=== PATIENT | female | born 1935 | race Caucasian/White ===

== ENCOUNTER 2024-01-21 18:50 | Outpatient (CLI) | payer MEDICARE, MEDICAID | END 2024-01-21 23:59 | disposition critical access hospital (66) | LOC: EMS 18:50 | DX: R07.89 Other chest pain (principal); I48.91 Unspecified atrial fibrillation; M54.2 Cervicalgia; Z79.01 Long term (current) use of anticoagulants | CPT/HCPCS: A0425; A0429 ==

== ENCOUNTER 2024-01-21 19:14 | Emergency (ER) | payer MEDICARE, MEDICAID ==
--- NOTE | 2024-01-21 19:45 | ED Physician Documentation ---
PD HPI CHEST PAIN - Stated complaint Stated Complaint: CHEST PX - Chief complaint Chief Complaint: Cardiac - History obtained from History obtained from: Patient - Additional information Additional information: About 630 this evening she developed substernal chest pain and felt short of breath and dizzy. She is a vague story about her cardiac history. Sound like she may have had a valve replacement and or atrial fibrillation. She is on Eliquis, Metoprolol, lisinopril, and multiple other medications. On route she did have a dynamic EKG change but at this point on initial evaluation her pain is gone. That said while we were talking she goes into ventricular tachycardia and I queried as to CODE STATUS, and she said she did not know. PD PAST MEDICAL HISTORY - Past Medical History Past Medical History: Yes Cardiovascular: High cholesterol Endocrine/Autoimmune: Type 1 diabetes, HyPOthyroidism - Present Medications Home Medications: Ambulatory Orders Medication Instructions Recorded Confirmed Apixaban [Eliquis] 1 tab PO BID 01/21/24 01/22/24 Atorvastatin Calcium [Lipitor] 1 tab PO DAILY 01/21/24 01/22/24 Bisacodyl Supp [Dulcolax Supp] 1 supp RC DAILY PRN 01/21/24 01/21/24 Bumetanide [Bumex] 1 tab PO BID 01/21/24 01/22/24 Calcium Carbonate [Antacid] 1 tab PO DAILY PRN 01/21/24 01/21/24 Copper Gluconate 4 mg PO DAILY 01/21/24 01/21/24 Cyanocobalamin [Vitamin B-12] 2,000 mcg PO DAILY 01/21/24 01/21/24 D-Mannose [Azo D-Mannose] 1 cap PO DAILY 01/21/24 01/21/24 Dulaglutide [Trulicity] 4.5 units SUBQ OAW 01/21/24 01/22/24 Ergocalciferol (Vitamin D2) 2,000 units PO DAILY 01/22/24 01/22/24 [Drisdol] Famotidine [Zantac-360 1 tab PO DAILY 01/22/24 01/22/24 (Famotidine)] Insulin Aspart [Insulin Aspart 4 units SUBQ TID 01/22/24 01/22/24 Flexpen] Insulin Glargine [Lantus Solostar] 6 units SUBQ DAILY PM 01/22/24 01/22/24 Levothyroxine [Synthroid] 1 tab PO DAILY 01/22/24 01/22/24 Lisinopril [Zestril] 1 tab PO DAILY 01/22/24 01/22/24 Loratadine [All Day Allergy Relief] 1 tab PO DAILY 01/22/24 01/22/24 Melatonin 1 tab PO DAILY PM 01/22/24 01/22/24 Metoprolol Succinate [Kapspargo 1 cap PO BID 01/22/24 01/22/24 Sprinkle] Multivitamin 1 tab PO DAILY 01/22/24 01/22/24 Omeprazole 1 cap PO BID 01/22/24 01/22/24 Spironolactone [Aldactone] 1 tab PO DAILY 01/22/24 01/22/24 glucosamine HCL [Glucosamine HCl] 2,000 mg PO DAILY 01/22/24 01/22/24 oxyBUTYnin chloride [Oxybutynin 1 tab PO DAILY 01/22/24 01/22/24 Chloride] predniSONE [Prednisone] 1 tab PO DAILY 01/22/24 01/22/24 - Allergies Allergies/Adverse Reactions: Allergies Allergy/AdvReac Type Severity Reaction Status Date / Time No Known Drug Allergies Allergy Verified 01/21/24 19:27 - Social History Does the pt smoke?: No Smoking Status: Never smoker PD ED PE NORMAL - Vitals Vital signs reviewed: Yes - General General: Alert and oriented X 3, No acute distress - Cardiac Cardiac: Other (Rapid and irregular without murmur) - Respiratory Respiratory: No respiratory distress, Clear bilaterally - Abdomen Abdomen: Non tender - Extremities Extremities: No edema - Neuro Neuro: Alert and oriented X 3 Results - Vitals Vitals: Vital Signs - 24 hr 01/21/24 01/21/24 01/21/24 19:20 19:50 19:59 Temperature 36.7 C 37 C Heart Rate 173 H 116 H 109 H Respiratory 28 H 22 22 Rate Blood Pressure 135/85 H 107/64 107/64 O2 Saturation 94 100 99 01/21/24 01/21/24 01/21/24 20:00 20:20 20:26 Temperature Heart Rate 114 H 116 H 95 Respiratory 18 24 17 Rate Blood Pressure 83/69 L 91/65 O2 Saturation 100 99 01/21/24 01/21/24 01/21/24 20:40 20:56 21:00 Temperature Heart Rate 88 78 89 Respiratory 20 20 20 Rate Blood Pressure 85/46 L 95/63 95/63 O2 Saturation 96 96 01/21/24 01/21/24 01/21/24 21:20 21:26 21:30 Temperature Heart Rate 103 H 109 H 101 H Respiratory 19 17 18 Rate Blood Pressure 91/49 L 80/58 L 87/60 L O2 Saturation 99 98 99 01/21/24 01/21/24 01/21/24 21:40 22:35 23:00 Temperature 37.2 C Heart Rate 101 H 88 102 H Respiratory 19 16 18 Rate Blood Pressure 87/60 L 87/56 L 97/54 L O2 Saturation 99 96 99 01/21/24 01/22/24 01/22/24 23:30 00:00 00:37 Temperature 36.7 C Heart Rate 101 H 88 88 Respiratory 20 18 28 H Rate Blood Pressure 104/78 95/65 95/82 H O2 Saturation 100 97 98 01/22/24 01/22/24 01/22/24 03:54 04:24 04:30 Temperature Heart Rate 83 85 96 Respiratory 16 16 20 Rate Blood Pressure 100/60 94/59 L 121/73 O2 Saturation 98 100 100 Oxygen O2 Source Room air - EKG (time done) 1925 EKG releavant findings:: EKG personally interpreted by author of this note. Relevant findings are: Rate: Rate (enter#) (191) Rhythm: Atrial fibrillation Intervals: LBBB Computer interpretation: Agree with computer 195 EKG releavant findings:: EKG personally interpreted by author of this note. Relevant findings are: Rate: Rate (enter#) (110) Rhythm: Atrial fibrillation Intervals: LBBB Ischemia: Non specific changes Computer interpretation: Agree with computer 2140 EKG releavant findings:: EKG personally interpreted by author of this note. Relevant findings are: Rate: Rate (enter#) (101) Rhythm: Sinus tachycardia Intervals: LBBB - Labs Labs: Laboratory Tests 01/21/24 01/21/24 01/21/24 19:40 19:40 19:40 WBC 10.3 RBC 4.44 Hgb 13.6 Hct 41.1 MCV 92.6 MCH 30.6 MCHC 33.1 RDW 12.6 Plt Count 89 L MPV 12.1 H Neut # (Auto) 7.9 H Lymph # (Auto) 1.6 [place] # (Auto) 0.6 Eos # (Auto) 0.0 Baso # (Auto) 0.0 Absolute Nucleated RBC 0.00 Nucleated RBC % 0.0 PT 14.9 H INR 1.4 H APTT Sodium 141 Potassium 3.4 L Chloride 105 Carbon Dioxide 23 Anion Gap 13.0 BUN 54 H Creatinine 1.3 Estimated GFR (MDRD) 39 L Glucose 241 H Calcium 9.5 Magnesium 1.4 L Total Bilirubin 0.4 AST 19 ALT 12 Alkaline Phosphatase 36 L Troponin I High Sens 21.1 H* Total Protein 6.2 L Albumin 4.0 Globulin 2.2 Albumin/Globulin Ratio 1.8 01/21/24 01/21/24 19:40 21:34 WBC RBC Hgb Hct MCV MCH MCHC RDW Plt Count MPV Neut # (Auto) Lymph # (Auto) [place] # (Auto) Eos # (Auto) Baso # (Auto) Absolute Nucleated RBC Nucleated RBC % PT INR APTT 29.3 Sodium Potassium Chloride Carbon Dioxide Anion Gap BUN Creatinine Estimated GFR (MDRD) Glucose Calcium Magnesium Total Bilirubin AST ALT Alkaline Phosphatase Troponin I High Sens 55.8 H* Total Protein Albumin Globulin Albumin/Globulin Ratio - Rads (name of study) Single view chest x-ray showing borderline cardiomegaly, patchy bibasilar opacities likely representing atelectasis. Relevant Findings:: Final report received, EMP independent interpretation of test Procedures - Procedural sedation Sedation prep: Informed consent, PE performed, ASA 3 - severe disease Sedation Medications: etomidate (5mg) Mallampati classification: II Patient status during sedation: Vitals remained stable, Maintained airway Sedation recovery: Recovered uneventfully Time in sedation (Minutes): 12 - Cardioversion - Major 1 Time of attempt: 19:50 Indication: Tachyarrhythmia, Clinically unstable, Hypotension Risks, benefits, alternatives explained to: Pt CS via: Pads Sync: 100j, 150j, 200j Post cardioversion rhythm: NSR (She was shocked 3 times, the first at 100, then 150, then 200. After 200 she went into sinus rhythm for a time but then quickly went back Into an irregular wide-complex tachycardia.) Performed by: ED MD CAZARES Medical Decision Making - ED course ED course: This is a [place] 82 with unclear cardiac history which may include A-fib especially given that she is anticoagulated who presents with chest pain. Initial EKG demonstrates what looks like probably atrial fibrillation with left bundle branch block and while we are talking she goes into ventricular tachycard ia and does become dizzy with this but does not syncopized. She did become hypotensive down to 60/30 or so, and the decision was made to pursue electrical cardioversion. She was sedated with a small dose of etomidate and then shocked 3 times at increasing doses, 100, then 150, then 200 J. After the 200 J shock she did convert into sinus rhythm but only lasted a few minutes before she went back into again, what I think is A-fib with RVR and a left bundle branch block. Started amiodarone bolus and drip. Initial call to [facility] per patient request for transfer as she probably does need to go to a higher level of care. They were full, subsequently [facility], also full, subsequently [facility], also full. Our health day camp unit leader was calling around without immediate success. Subsequently anticipating prolonged boarding I put in for boarding orders including her routine meds without some of her antihypertensives as her blood pressure is soft here serial labs, and echo tomorrow. She did seem to stabilize on the amio gtt with no CP and soft pressures ~90/60 and afib with rate ~100. Care to Dr Mendoza pending transfer. - Critical Care Time(min): 45 Time Includes: Direct patient care, Review records, Reassess patient, Document care, Coordinate care, Medical consult, Family consult for tx dec Data interpretation: Labs, Pulse ox Procedures included in critical care time: Peripheral IV Procedures excluded from critical care time: EKG, See progress note Departure - Departure Disposition: 02 Transfer Acute Care Hosp Clinical Impression: Atrial fibrillation, Non-STEMI (non-ST elevated myocardial infarction), Ventricular tachycardia, sustained Condition: Critical Forms: PCP List Discharge Date/Time: 01/22/24 05:22
[2024-01-21] MEDS: ETOMIDATE 40 MG/20 ML VIAL IVP STA (19:51)
[2024-01-21 19:52] LABS: BASOPHILS % (AUTO) 0.4 %; EOSINOPHILS % (AUTO) 0.1 %; HCT - HEMATOCRIT 41.1 % (37.0-47.0); HGB - HEMOGLOBIN 13.6 g/dL (12.0-16.0); LYMPHOCYTES # (AUTO) 1.6 10^3/uL (1.5-3.5); LYMPHOCYTES % (AUTO) 15.7 %; MEAN CORPUSCULAR HEMOGLOBIN 30.6 pg (27.0-31.0); MEAN CORPUSCULAR HGB CONC 33.1 g/dL (32.0-36.0); MEAN CORPUSCULAR VOLUME 92.6 fL (81.0-99.0); MEAN PLATELET VOLUME 12.1 fL (7.9-10.8); MONOCYTES # (AUTO) 0.6 10^3/uL (0.0-1.0); MONOCYTES % (AUTO) 6.2 %; NEUTROPHILS # (AUTO) 7.9 10^3/uL (1.5-6.6); NEUTROPHILS % (AUTO) 77.1 %; PLT - PLATELET COUNT 89 10^3/uL (130-450); RED BLOOD COUNT 4.44 10^6/uL (4.20-5.40); RED CELL DISTRIBUTION WIDTH 12.6 % (12.0-15.0); WHITE BLOOD COUNT 10.3 x10^3/uL (4.8-10.8)
[2024-01-21] MEDS: SODIUM CHLORIDE 0.9% 1,000 ML IV STA (19:52)
[2024-01-21 19:57] LABS: INR 1.4 (0.8-1.2); PT - PROTHROMBIN TIME 14.9 secs (9.9-12.6)
[2024-01-21] MEDS: AMIODARONE 150 MG/100 ML 100 ML IV ONE (19:59)
[2024-01-21] MEDS: AMIODARONE 360 MG/200 ML 200 ML IV ONE (20:06)
[2024-01-21 20:21] LABS: ALBUMIN/GLOBULIN RATIO 1.8 (1.0-2.2); BILIRUBIN,TOTAL 0.4 mg/dL (0.2-1.0); CALCIUM 9.5 mg/dL (8.5-10.3); CREATININE 1.3 mg/dL (0.6-1.3); MAGNESIUM 1.4 mg/dL (1.7-2.3); POTASSIUM 3.4 mmol/L (3.5-4.5); TOTAL PROTEIN 6.2 g/dL (6.4-8.9)
[2024-01-21 20:25] LABS: TROPONIN I HIGH SENSITIVITY 21.1 ng/L (2.3-14.8)
--- NOTE | 2024-01-21 20:33 | XRAY Report ---
PROCEDURE: Chest 1V INDICATIONS: cp` TECHNIQUE: One view of the chest was acquired. COMPARISON: None. FINDINGS: Surgical changes and devices: Defibrillator pad projects over the chest. Prior ACDF. Lungs and pleura: Patchy bibasilar opacities. No pneumothorax. No substantial pleural effusion. Mediastinum: Mediastinal contours appear normal. Heart size is borderline enlarged. Bones and chest wall: No suspicious bony lesions. Overlying soft tissues appear unremarkable. Sev ere degenerative changes of the bilateral shoulders more pronounced on the left. IMPRESSION: Borderline cardiomegaly. Patchy bibasilar opacities likely representing atelectasis. Reviewed by: Aba Waite MD on 01/21/2024 8:32 PM PDT Approved by: Aba Waite MD on 01/21/2024 8:32 PM PDT Station ID: [id number]
[2024-01-21] MEDS: POTASSIUM BICARB 25 MEQ TABLET PO STA (20:59)
[2024-01-21] MEDS: MAGNESIUM SULFATE 2 GRAM 2 GM/50 ML BAG IV ONE (20:59)
[2024-01-21] MEDS ORDERED: ACETAMINOPHEN 500 MG TABLET PO PRN (22:52)
[2024-01-21] MEDS ORDERED: ONDANSETRON 4 MG/2 ML VIAL IVP PRN (22:52)
[2024-01-21] MEDS: HEPARIN 25000UNITS/500ML (D5W) 25,000 UNIT/500 ML BAG IV SCH (23:41)
[2024-01-21] MEDS: METOPROLOL SUCCINATE 50 MG TABLET PO SCH (23:49)
[2024-01-22] MEDS: SODIUM CHLORIDE 0.9% 1,000 ML IV STA ×2 (00:48→04:17)
--- NOTE | 2024-01-22 00:54 | ED Physician Documentation ---
ED Addendum - Addendum Addendum: 01/22/24 00:51 I received signout/turnover of care on this patient with Dr. Davalos; please see his note for complete H&P. At the time of the turnover of care, a bed at an appropriate facility and another (higher level of care) hospital is being looked for. I was put in touch with the gate attendant on-call for [facility] (Dr. Langley). She says patient can be admitted to hospitalist team with cardiology consult. She initially recommended I contact patient's gate attendant at [facility], but I explained they have no beds available. I subsequently spoke with the hospitalist on duty for [facility] (Dr. Edmonds). She accepts patient to [facility].
[2024-01-22] MEDS: AMIODARONE 360 MG/200 ML 200 ML IV SCH (02:20)
[2024-01-22 04:34] VITALS: O2SAT 100
[2024-01-22 04:44] VITALS: BP 121/73
[2024-01-22] MEDS ORDERED: PANTOPRAZOLE 40 MG TABLET PO SCH (07:00)
[2024-01-22] MEDS ORDERED: LEVOTHYROXINE 100 MCG TABLET PO SCH (07:00)
[2024-01-22] MEDS ORDERED: predniSONE 5 MG TABLET PO SCH (08:00)
[2024-01-22] MEDS ORDERED: ASPIRIN CHEW 81 MG TABLET PO SCH (09:00)
[2024-01-22] MEDS ORDERED: ATORVASTATIN 40 MG TABLET PO SCH (21:00)
== END 2024-01-22 05:22 | disposition short-term general hospital (02) ==
LOC: ED 19:14
DX: I21.4 Non-ST elevation (NSTEMI) myocardial infarction (principal); I48.91 Unspecified atrial fibrillation; I47.20 Ventricular tachycardia, unspecified; E10.9 Type 1 diabetes mellitus without complications; E03.9 Hypothyroidism, unspecified; E78.00 Pure hypercholesterolemia, unspecified; Z79.01 Long term (current) use of anticoagulants; Z79.4 Long term (current) use of insulin; Z79.899 Other long term (current) drug therapy
CPT/HCPCS: 36415; 71045; 80053; 83735; 84484; 85025; 85610; 85730; 92960; 93005; 96365; 96366; 96368; 96375; 96376; 99152; 99291; A9270; J0282; 80048

== ENCOUNTER 2024-02-13 12:28 | Outpatient (CLI) | payer MEDICARE, MEDICAID | END 2024-02-13 23:59 | disposition critical access hospital (66) | LOC: EMS 12:28 | PROVIDERS: ATTEND Emergency Medicine | DX: R07.81 Pleurodynia (principal); W18.39XA Other fall on same level, initial encounter; Y92.009 Unspecified place in unspecified non-institutional (private) residence as the place of occurrence of the external cause; R42 Dizziness and giddiness | CPT/HCPCS: A0425; A0429 ==

== ENCOUNTER 2024-02-13 12:46 | Emergency (ER) | payer MEDICARE, MEDICAID ==
--- NOTE | 2024-02-13 12:55 | ED Physician Documentation ---
PD HPI Fall - Stated complaint Stated Complaint: GLF - History obtained from History obtained from: Patient, EMS - History of Present Illness Mechanism of injury: Lost balance Fall distance: Standing position (leaned over to picking supervisor something and lost balance, falling to left anterior. NO LOC nor head impact. On DOAC and Plavix both. 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 No: Head, Face, Abdomen Associated symptoms: No: LOC, AMS Symptoms improve with: Rest Worsens with: Movement Contributing factors: Anticoagulated Similar symptoms before: Has not had sx before Recently seen: Surgery (had cardiac stent x 2 done 3 weeks ago without compications and has not had chest pain nor eedma subsequently.) Review of Systems Constitutional: denies: Fever, Chills Throat: denies: Sore throat Cardiac: reports: Palpitations. denies: Chest pain / pressure Respiratory: denies: Dyspnea, Cough PD PAST MEDICAL HISTORY - Past Medical History Cardiovascular: High cholesterol, Atrial fibrillation Endocrine/Autoimmune: Type 1 diabetes, HyPOthyroidism - Present Medications Home Medications: Ambulatory Orders Medication Instructions Recorded Confirmed Apixaban [Eliquis] 1 tab PO BID 01/21/24 02/13/24 Atorvastatin Calcium [Lipitor] 1 tab PO DAILY 01/21/24 02/13/24 Bisacodyl Supp [Dulcolax Supp] 1 supp RC DAILY PRN 01/21/24 02/13/24 Bumetanide [Bumex] 1 tab PO BID 01/21/24 02/13/24 Calcium Carbonate [Antacid] 1 tab PO DAILY PRN 01/21/24 02/13/24 Copper Gluconate 4 mg PO DAILY 01/21/24 02/13/24 Cyanocobalamin [Vitamin B-12] 2,000 mcg PO DAILY 01/21/24 02/13/24 D-Mannose [Azo D-Mannose] 1 cap PO DAILY 01/21/24 02/13/24 Dulaglutide [Trulicity] 4.5 units SUBQ OAW 01/21/24 02/13/24 Ergocalciferol (Vitamin D2) 2,000 units PO DAILY 01/22/24 02/13/24 [Drisdol] Famotidine [Zantac-360 1 tab PO DAILY 01/22/24 02/13/24 (Famotidine)] Insulin Aspart [Insulin Aspart 4 units SUBQ TID 01/22/24 02/13/24 Flexpen] Insulin Glargine [Lantus Solostar] 6 units SUBQ DAILY PM 01/22/24 02/13/24 Levothyroxine [Synthroid] 1 tab PO DAILY 01/22/24 02/13/24 Lisinopril [Zestril] 1 tab PO DAILY 01/22/24 02/13/24 Loratadine [All Day Allergy Relief] 1 tab PO DAILY 01/22/24 02/13/24 Melatonin 1 tab PO DAILY PM 01/22/24 02/13/24 Metoprolol Succinate [Kapspargo 100 mg PO BID 01/22/24 02/13/24 Sprinkle] Multivitamin 1 tab PO DAILY 01/22/24 02/13/24 Omeprazole 1 cap PO BID 01/22/24 02/13/24 Spironolactone [Aldactone] 12.5 tab PO DAILY 01/22/24 02/13/24 glucosamine HCL [Glucosamine HCl] 2,000 mg PO DAILY 01/22/24 02/13/24 oxyBUTYnin chloride [Oxybutynin 1 tab PO DAILY 01/22/24 02/13/24 Chloride] predniSONE [Prednisone] 1 tab PO DAILY 01/22/24 02/13/24 Amiodarone [Pacerone] 200 mg PO DAILY 02/13/24 02/13/24 Clopidogrel [Plavix] 75 mg PO DAILY 02/13/24 02/13/24 Digoxin [Lanoxin] 62.5 mcg PO DAILY 02/13/24 02/13/24 Famotidine [Pepcid] 20 mg PO DAILY 02/13/24 02/13/24 Lidocaine Patch 5% [Lidoderm Patch] 1 patch TOP DAILY PRN #10 patch 02/13/24 - Allergies Allergies/Adverse Reactions: Allergies Allergy/AdvReac Type Severity Reaction Status Date / Time metformin Allergy Unknown Verified 02/13/24 13:09 - Social History Does the pt smoke?: No Smoking Status: Never smoker PD ED PE NORMAL - Vitals Vital signs reviewed: Yes - General General: Alert and oriented X 3, No acute distress, Well developed/nourished - HEENT HEENT: Atraumatic - Neck Neck: Supple, no meningeal sign, No bony TTP, No adenopathy - Cardiac Cardiac: No: RRR (irregular but rate controlled at about 100. ) - Respiratory Respiratory: No respiratory distress, Clear bilaterally - Abdomen Abdomen: Normal bowel sounds, Other. No: Soft, Non tender, Non distended, No organomegaly Results - Vitals Vitals: Vital Signs - 24 hr 02/13/24 02/13/24 02/13/24 12:52 14:00 14:30 Temperature 36.3 C L Heart Rate 94 105 H 95 Respiratory 20 24 18 Rate Blood Pressure 137/109 H 116/103 H 113/75 O2 Saturation 98 99 98 02/13/24 02/13/24 15:30 17:25 Temperature 36 C L Heart Rate 74 99 Respiratory 18 17 Rate Blood Pressure 109/68 121/86 H O2 Saturation 98 97 Oxygen O2 Source Room air - EKG (time done) 13:03 EKG releavant findings:: EKG personally interpreted by author of this note. Relevant findings are: Rate: Rate (enter#) (103) Rhythm: Atrial fibrillation Intervals: RBBB Ischemia: Non specific changes Compare to prior EKG: Unchanged from prior EKG (01/21/2024) - Tele (time rhythm occurred) in ED Telemetry / rhythm strip: Atrial fibrillation (with 3-4 second pause seen twice. Subsequently no further pauses after Mag infusion, whether coincidence or not. ) - Labs Labs: Laboratory Tests 02/13/24 02/13/24 02/13/24 13:02 13:02 13:02 WBC 10.7 RBC 3.38 L Hgb 10.4 L Hct 34.1 L MCV 100.9 H MCH 30.8 MCHC 30.5 L RDW 14.7 Plt Count 85 L MPV 12.2 H Neut # (Auto) 9.6 H Lymph # (Auto) 0.5 L [place] # (Auto) 0.5 Eos # (Auto) 0.0 Baso # (Auto) 0.0 Absolute Nucleated RBC 0.00 Nucleated RBC % 0.0 Sodium 142 Potassium 3.9 Chloride 113 H Carbon Dioxide 24 Anion Gap 5.0 L BUN 22 H Creatinine 0.7 Estimated GFR (MDRD) 79 L Glucose 152 H Calcium 8.8 Magnesium 1.6 L Total Bilirubin 0.4 AST 39 ALT 36 Alkaline Phosphatase 38 L Total Protein 5.4 L Albumin 3.6 Globulin 1.8 L Albumin/Globulin Ratio 2.0 Lipase 33 Last Dose Date 02/13/24 Last Dose Time 0700 Digoxin 0.7 - Rads (name of study) chest CT Relevant Findings:: Prelim report reviewed (single nondisplaced anterolateral left rib fracture, appears 10th. No lung injury. ), EMP independent interpretation of test head CT Relevant Findings:: Prelim report reviewed, EMP independent interpretation of test (no acute ICH nor parenchymal injury.) PD Medical Decision Making - ED course Complexity details: reviewed results (chest CT showing single rib fracture #10 on left anterior. No internal injuries seen. ), re-evaluated patient (The patient is feeling well here. She has having some pain in the left lower rib consistent with the fracture found on CT. No feelings of lightheadedness nor dyspnea.), d/w patient, d/w family (daughter), d/w healthcare economics consultant (Dr. Amador, parcel contractor for Dr. Pilar Claudio I conveyed briefly the patient presentation and basic testing with the recent interventions of the stents. Discussed the few brief pauses she had here. He felt unconcerned about pauses less than 4 to 5 seconds in her setting, and micah without any symptoms.) ED course: The patient states she bent over to picking supervisor something from a sitting position and fell forward against a table leg or such. She had pain in the left lower chest wall and the and anterior midclavicular line. She did not strike her head. Denies any headache. However she is on blood thinner of Eliquis and also was on Plavix for the last 2 and half weeks status post 2 stents placed by [facility] rdiology at [facility]. Her usual park guard however is Dr. Radha peraza out of [facility]. The patient has not had any lightheaded episodes. She denies any exertional dyspnea or chest pains. The patient declined any stronger pain medicines here. She was given some Tylenol. We did do a CT of the chest due to her complaint of pain in that area. Also head CT due to being on blood thinners with some abruptness of fall fall and impact. The head CT was without any acute findings. The chest CT did not show any lung or upper abdominal organ injuries. There was a nondisplaced fracture of rib 10. Pt wishes not to take any opioid meds. Will stay with TYlenol regualrly and lidocaine patch for area. No NSIADS since on DOAC and Plavix. Departure - Departure Disposition: 01 Home, Self Care Clinical Impression: Fall from slip, trip, or stumble, Rib fracture, Atrial fibrillation Condition: Stable Record reviewed to determine appropriate education?: Yes Instructions: ED Fx Rib Follow-Up: Ananth Quezada MD [Physician No Access] - Prescriptions: Lidocaine Patch 5% [Lidoderm Patch] 1 patch TOP DAILY PRN #10 patch PRN Reason: pain Comments: Stay well-hydrated. For now continue with your usual medications. You do have the atrial fibrillation. It is okay to continue with your blood thinners and your clopidogrel/Plavix. From the fall, you do have 1 broken rib, the lowest front rib on the left, the 10th rib. No signs of injury to the organs underneath. I would suggest Tylenol/acetaminophen 500 to 650 mg 4 times daily regularly for the next 7 to 10 days to help with pain. You can also try lidocaine patches over the area. Activity as tolerated. I did talk with the on-call park guard for Dr. Radha peraza. He felt the slight pauses that you had on your heart rhythm were common enough related to the A-fib and the medications that you take. If you do find that you are having lightheaded episodes periodically, then recheck. Contact your cardiology office on Friday to update them. While here in the ER you did have a few episodes of pauses between heartbeats that were 3 to 4 seconds in duration but none longer. Forms: PCP List Discharge Date/Time: 02/13/24 17:12
[2024-02-13 13:10] LABS: BASOPHILS % (AUTO) 0.3 %; EOSINOPHILS % (AUTO) 0.1 %; HCT - HEMATOCRIT 34.1 % (37.0-47.0); HGB - HEMOGLOBIN 10.4 g/dL (12.0-16.0); LYMPHOCYTES # (AUTO) 0.5 10^3/uL (1.5-3.5); LYMPHOCYTES % (AUTO) 4.7 %; MEAN CORPUSCULAR HEMOGLOBIN 30.8 pg (27.0-31.0); MEAN CORPUSCULAR HGB CONC 30.5 g/dL (32.0-36.0); MEAN CORPUSCULAR VOLUME 100.9 fL (81.0-99.0); MEAN PLATELET VOLUME 12.2 fL (7.9-10.8); MONOCYTES # (AUTO) 0.5 10^3/uL (0.0-1.0); MONOCYTES % (AUTO) 4.3 %; NEUTROPHILS # (AUTO) 9.6 10^3/uL (1.5-6.6); NEUTROPHILS % (AUTO) 89.9 %; PLT - PLATELET COUNT 85 10^3/uL (130-450); RED BLOOD COUNT 3.38 10^6/uL (4.20-5.40); RED CELL DISTRIBUTION WIDTH 14.7 % (12.0-15.0); WHITE BLOOD COUNT 10.7 x10^3/uL (4.8-10.8)
[2024-02-13 13:16] LABS: MAGNESIUM 1.6 mg/dL (1.7-2.3)
[2024-02-13 13:22] LABS: ALBUMIN 3.6 g/dL (3.2-5.5); BILIRUBIN,TOTAL 0.4 mg/dL (0.2-1.0); CALCIUM 8.8 mg/dL (8.5-10.3); CREATININE 0.7 mg/dL (0.6-1.3); POTASSIUM 3.9 mmol/L (3.5-4.5); TOTAL PROTEIN 5.4 g/dL (6.4-8.9)
--- NOTE | 2024-02-13 13:40 | CT Report ---
PROCEDURE: Head WO INDICATIONS: fall, on DOAC, normal neuro TECHNIQUE: Noncontrast 4.5 mm thick angled axial sections acquired from the foramen magnum to the vertex. For r adiation dose reduction, the following was used: automated exposure control, adjustment of mA and/or kV according to patient size. COMPARISON: None. FINDINGS: Image quality: Excellent. CSF spaces: Basal cisterns are patent. No extra-axial fluid collections. Ventricles are normal in size and shape. Brain: No midline shift. No intracranial masses or hemorrhage. Craft-white matter interface is norm al. Intracranial carotid calcifications. Age-related volume loss and moderate, age-appropriate small vessel ischemic change. Skull and face: Calvarium and visualized facial bones are intact, without suspicious lesions. Sinuses: Visualized sinuses and mastoids are clear. IMPRESSION: No acute intracranial pathology. Reviewed by: Deven Williamson MD on 02/13/2024 1:39 PM PDT Approved by: Deven Williamson MD on 02/13/2024 1:39 PM PDT Station ID: [id number]
--- NOTE | 2024-02-13 14:45 | CT Report ---
PROCEDURE: Chest WO INDICATIONS: fall with left ribs/chest pain TECHNIQUE: A CT scan of the chest was performed. Intravenous contrast media was not administered. Images were re corded and evaluated at appropriate window settings. Reformats: axial MIP of the chest, coronal and s agittal. For radiation dose reduction, the following was used: automated exposure control, adjustment of mA and/or kV according to patient size. COMPARISON: Single view chest 01/21/2024.. FINDINGS: Image quality: Diagnostic. Chest wall and lower neck: No thyroid nodule which requires sonographic follow up. No axillary or sup raclavicular adenopathy by size. Lungs and pleura: No consolidation. No pleural effusions. No pneumothorax. No suspicious pulmonary n odules which require follow up. Mediastinum: Heart size is normal. No pericardial effusion. No large vessel abnormality. No mediastin al adenopathy by size criteria. Bones: No aggressive osseous abnormality. There is a single visualized lateral left lower rib fractur e, likely the anterior lateral 10th rib, without adjacent hematoma Upper Abdomen: Unremarkable. IMPRESSION: Acute fracture, nondisplaced, left lateral lower rib fracture, likely the 10th rib anterolaterally. T his is best seen on current CT scanning series 5 image 79. No associated pneumothorax. No hematoma. Reviewed by: Tom Choudhury MD on 02/13/2024 2:44 PM PDT Approved by: Tom Choudhury MD on 02/13/2024 2:44 PM PDT Station ID: [id number]
[2024-02-13] MEDS: MAGNESIUM SULFATE 2 GRAM 2 GM/50 ML BAG IV ONE (14:48)
[2024-02-13 14:49] LABS: DIGOXIN 0.7 ng/mL
[2024-02-13] MEDS: LIDOCAINE PATCH 5% TOP STA (17:16)
[2024-02-13 17:27] VITALS: BP 121/86; O2SAT 97
== END 2024-02-13 17:12 | disposition home or self-care (01) ==
LOC: EDSEX → EDUNIT# → ED 12:46
DX: S22.32XA Fracture of one rib, left side, initial encounter for closed fracture (principal); W19.XXXA Unspecified fall, initial encounter; Y92.009 Unspecified place in unspecified non-institutional (private) residence as the place of occurrence of the external cause; I44.30 Unspecified atrioventricular block; I45.10 Unspecified right bundle-branch block; I48.91 Unspecified atrial fibrillation; E10.9 Type 1 diabetes mellitus without complications; Z79.01 Long term (current) use of anticoagulants; Z79.02 Long term (current) use of antithrombotics/antiplatelets; Z95.5 Presence of coronary angioplasty implant and graft
CPT/HCPCS: 36415; 70450; 71250; 80053; 80162; 83690; 83735; 85025; 93005; 96365; 99284; A9270

== ENCOUNTER 2024-03-04 10:56 | Outpatient (CLI) | payer MEDICARE, MEDICAID ==
[2024-03-04 18:05] LABS: BUN - BLOOD UREA NITROGEN 21 mg/dL (6-20); CALCIUM 9.2 mg/dL (8.5-10.3); CARBON DIOXIDE - CO2 28 mmol/L (21-32); CHLORIDE 110 mmol/L (101-111); CREATININE 0.8 mg/dL (0.6-1.3); DIGOXIN 0.6 ng/mL; GFR - MDRD 68 (>89); GLUCOSE 186 mg/dL (74-104); SODIUM 142 mmol/L (135-145)
== END 2024-03-04 10:57 | disposition home or self-care (01) ==
LOC: LAB.N 10:56
PROVIDERS: ATTEND Internal Medicine Geriatric Medicine
DX: I48.0 Paroxysmal atrial fibrillation (principal)
CPT/HCPCS: 36415; 80048; 80162

== ENCOUNTER 2024-04-06 11:47 | Outpatient (CLI) | payer MEDICARE, MEDICAID ==
[2024-04-06 17:50] LABS: BASOPHILS % (AUTO) 0.3 %; HCT - HEMATOCRIT 36.2 % (37.0-47.0); HGB - HEMOGLOBIN 10.9 g/dL (12.0-16.0); LYMPHOCYTES # (AUTO) 0.8 10^3/uL (1.5-3.5); LYMPHOCYTES % (AUTO) 7.1 %; MEAN CORPUSCULAR HEMOGLOBIN 29.2 pg (27.0-31.0); MEAN CORPUSCULAR HGB CONC 30.1 g/dL (32.0-36.0); MEAN CORPUSCULAR VOLUME 97.1 fL (81.0-99.0); MEAN PLATELET VOLUME 12.2 fL (7.9-10.8); MONOCYTES # (AUTO) 0.3 10^3/uL (0.0-1.0); MONOCYTES % (AUTO) 2.3 %; NEUTROPHILS # (AUTO) 10.6 10^3/uL (1.5-6.6); NEUTROPHILS % (AUTO) 89.5 %; PLT - PLATELET COUNT 97 10^3/uL (130-450); RED BLOOD COUNT 3.73 10^6/uL (4.20-5.40); RED CELL DISTRIBUTION WIDTH 14.5 % (12.0-15.0); WHITE BLOOD COUNT 11.9 x10^3/uL (4.8-10.8)
[2024-04-06 18:04] LABS: ALBUMIN 4.1 g/dL (3.2-5.5); ALBUMIN/GLOBULIN RATIO 2.7 (1.0-2.2); ALKALINE PHOSPHATASE 42 IU/L (42-121); ALT ALANINE AMINOTRANSFERASE 20 IU/L (10-60); AST ASPARTATE AMINOTRANSFERASE 29 IU/L (10-42); BILIRUBIN,TOTAL 0.4 mg/dL (0.2-1.0); BUN - BLOOD UREA NITROGEN 28 mg/dL (6-20); CALCIUM 9.4 mg/dL (8.5-10.3); CARBON DIOXIDE - CO2 26 mmol/L (21-32); CHLORIDE 110 mmol/L (101-111); CHOL/HDL RATIO 2.5 (<4.4); CHOLESTEROL 132 mg/dL; CREATININE 0.9 mg/dL (0.6-1.3); GFR - MDRD 59 (>89); GLUCOSE 195 mg/dL (74-104); HDL CHOLESTEROL 52 mg/dL; LDL CHOLESTEROL,CALCULATED 45 mg/dL; LDL/HDL RATIO 0.9 (<4.4); POTASSIUM 4.6 mmol/L (3.5-4.5); SODIUM 143 mmol/L (135-145); TOTAL PROTEIN 5.6 g/dL (6.4-8.9); TRIGLYCERIDES 174 mg/dL; VLDL CHOLESTEROL 35 mg/dL
[2024-04-06 18:17] LABS: CREATININE,URINE 80.2 mg/dL; MICROALBUM/CREATININE RATIO,UR 76.1 ug/mg (<30.0); MICROALBUMIN,URINE 6.1 mg/dL
[2024-04-06 18:18] LABS: THYROID STIMULATING HORMONE 2.89 uIU/mL (0.34-5.60)
[2024-04-06 20:06] LABS: ESTIMATED AVERAGE GLUCOSE 151 mg/dL (70-100); HEMOGLOBIN A1c% 6.9 % (4.27-6.07)
== END 2024-04-06 11:48 | disposition home or self-care (01) ==
LOC: LAB.N 11:47
PROVIDERS: ATTEND Psychiatry & Neurology Neurology
DX: E11.42 Type 2 diabetes mellitus with diabetic polyneuropathy (principal); Z79.4 Long term (current) use of insulin; E78.2 Mixed hyperlipidemia; E03.9 Hypothyroidism, unspecified; E53.8 Deficiency of other specified B group vitamins
CPT/HCPCS: 36415; 80053; 80061; 82043; 82570; 82607; 83036; 83721; 84443; 85025